=== PATIENT | female | born 1935 | race Caucasian/White ===

== ENCOUNTER 2018-09-14 17:01 | Observation (INO) | payer MEDICARE ==
[~2018-09-14] VITALS: Ht 172.7 cm; Wt 80.9 kg
[2018-09-14 18:03] LABS: BASOPHILS # (AUTO) 0.1 X10'3 (0-0.2); BASOPHILS % (AUTO) 1.5 % (0-1); EOSINOPHILS # (AUTO) 0.1 X10'3 (0-0.9); HEMATOCRIT 42.3 % (35.0-45.0); HEMOGLOBIN 14.2 g/dl (12.0-16.0); LYMPHOCYTES # (AUTO) 2.8 X10'3 (1.1-4.8); LYMPHOCYTES % (AUTO) 38.5 % (21-51); MEAN CORPUSCULAR HEMOGLOBIN 31.1 PG (27.0-31.0); MEAN CORPUSCULAR HGB CONC 33.6 g/dL (33.0-36.5); MEAN CORPUSCULAR VOLUME 92.5 FL (78-98); MONOCYTES # (AUTO) 0.4 X10'3 (0-0.9); MONOCYTES % (AUTO) 5.5 % (2-12); NEUTROPHILS # (AUTO) 3.9 X10'3 (1.8-7.7); NEUTROPHILS % (AUTO) 53.5 % (42-75); PLATELET COUNT 356 X10'3 (140-440); RED BLOOD COUNT 4.57 X10'6 (4.20-5.60); WHITE BLOOD COUNT 7.2 X10'3 (4.5-11.0)
[2018-09-14] MEDS ORDERED: aspirin 325mg tablet PO ONE (18:05)
[2018-09-14 18:13] LABS: PARTIAL THROMBOPLASTIN TIME 31 SECONDS (22-32)
[2018-09-14 18:24] LABS: ALANINE AMINOTRANSFERASE 33 U/L (12-78); ALBUMIN 3.5 G/DL (3.4-5.0); ALKALINE PHOSPHATASE 64 IU/L (46-116); ANION GAP 6 (8-16); ASPARTATE AMINO TRANSFERASE 18 U/L (10-37); BILIRUBIN,TOTAL 0.4 MG/DL (0.1-1.0); BLOOD UREA NITROGEN 10 MG/DL (7-18); BUN/CREATININE RATIO 13.3 (6.6-38.0); CHLORIDE 105 MMOL/L (99-107); CREATININE 0.75 MG/DL (0.40-0.90); GLUCOSE 106 MG/DL (70-104); SODIUM 138 MMOL/L (135-145); TOTAL CARBON DIOXIDE 26.9 MMOL/L (24-32); TROPONIN I < 0.04 NG/ML (0.0-0.05); eGFR 74 ML/MIN
[2018-09-14 18:45] LABS: CLARITY,URINE CLEAR (Clear); COLOR,URINE YELLOW (Yellow); GLUCOSE, URINE NEGATIVE (Neg); KETONES,URINE NEGATIVE (Neg); LEUKOCYTE ESTERASE ,URINE NEGATIVE (Neg); NITRITES, URINE NEGATIVE (Neg); OCCULT BLOOD,URINE NEGATIVE (Neg); PH,URINE 5.5 (4.8-8.0); PROTEIN,URINE NEGATIVE (Neg); UROBILINOGEN,URINE 0.2 E.U/dL (0.2-1.0)
[2018-09-14 18:51] LABS: UA COLLECTION TYPE CLN CATCH MIDSTREAM
[2018-09-14] MEDS ORDERED: NITR50CA PO (19:07)
[2018-09-14] MEDS ORDERED: APIX5TAB5 PO (19:09)
[2018-09-14] MEDS ORDERED: CHOL400T PO (19:10)
[2018-09-14] MEDS ORDERED: LACT1CAP65 PO (19:14)
[2018-09-14] MEDS ORDERED: CALC-499 PO (19:14)
[2018-09-14] MEDS ORDERED: TEMA15CA5 PO (19:16)
[2018-09-14] MEDS ORDERED: magnesium hydroxide 30ml (MOM) UD suspension PO PRN (19:20)
[2018-09-14] MEDS ORDERED: acetaminophen 325mg tablet PO PRN ×2 (19:20)
[2018-09-14] MEDS ORDERED: morphine 2 MG/ML inj. syringe IV PRN ×2 (19:20)
[2018-09-14] MEDS ORDERED: ondansetron/PF 4mg/2ml inj IV PRN (19:20)
[2018-09-14] MEDS ORDERED: HYDROcodone/acetaminophen 5mg/325mg tablet PO PRN (19:20)
[2018-09-14] MEDS ORDERED: temazepam 15mg capsule PO PRN (19:20)
[2018-09-14] MEDS ORDERED: mag hydrox/Alum hydrox/simeth 30ml oral suspension PO PRN (19:20)
[2018-09-14] MEDS ORDERED: TEMAZEPAM 7.5 MG PO PRN (19:30)
--- NOTE | 2018-09-14 19:42 | NUR ---
Received report from Pa FORDE in ER. Reveiwed POC with all questions and concerns addressed at this time. Room is ready for patient.
[2018-09-14 19:52] VITALS: BP 135/80
[2018-09-14] MEDS ORDERED: APIXABAN 5 MG PO SCH (20:00)
[2018-09-14] MEDS: normal saline 1000ml 1,000 ML IV SCH (20:14)
[2018-09-14] MEDS: apixaban 5mg tablet PO SCH (20:14)
[2018-09-14] MEDS ORDERED: nitrofurantoin macrocrystal 50mg capsule PO SCH (21:00)
[2018-09-14 22:00] VITALS: BP 114/59
[2018-09-15 02:00] VITALS: BP 129/50
[2018-09-15 06:00] VITALS: BP 124/45
[2018-09-15 06:04] LABS: BASOPHILS % (AUTO) 0.7 % (0-1); EOSINOPHILS # (AUTO) 0.1 X10'3 (0-0.9); EOSINOPHILS % (AUTO) 1.8 % (0-6); HEMATOCRIT 40.5 % (35.0-45.0); HEMOGLOBIN 13.6 g/dl (12.0-16.0); LYMPHOCYTES # (AUTO) 2.3 X10'3 (1.1-4.8); MEAN CORPUSCULAR HEMOGLOBIN 30.9 PG (27.0-31.0); MEAN CORPUSCULAR HGB CONC 33.6 g/dL (33.0-36.5); MEAN CORPUSCULAR VOLUME 91.8 FL (78-98); MEAN PLATELET VOLUME 6.8 FL (7.4-10.4); MONOCYTES # (AUTO) 0.3 X10'3 (0-0.9); MONOCYTES % (AUTO) 6.4 % (2-12); NEUTROPHILS # (AUTO) 2.5 X10'3 (1.8-7.7); NEUTROPHILS % (AUTO) 48.1 % (42-75); PLATELET COUNT 333 X10'3 (140-440); RED BLOOD COUNT 4.41 X10'6 (4.20-5.60); RED CELL DISTRIBUTION WIDTH 13.8 % (11.5-14.5); WHITE BLOOD COUNT 5.3 X10'3 (4.5-11.0)
--- NOTE | 2018-09-15 06:18 | NUR ---
Report given to Tracee FORDE.
--- NOTE | 2018-09-15 06:30 | NUR ---
received report from raiza uriarte
[2018-09-15 06:44] LABS: ALBUMIN 3.1 G/DL (3.4-5.0); ANION GAP 5 (8-16); BLOOD UREA NITROGEN 12 MG/DL (7-18); BUN/CREATININE RATIO 17.4 (6.6-38.0); CALCIUM 8.4 MG/DL (8.5-10.1); CHLORIDE 109 MMOL/L (99-107); CHOL/HDL RATIO 4.7 (0.00-4.99); CHOLESTEROL 166 MG/DL (0-200); CREATININE 0.69 MG/DL (0.40-0.90); GLUCOSE 97 MG/DL (70-104); HDL CHOLESTEROL 35 MG/DL (35-60); LDL CHOLESTEROL 99 MG/DL (50-100); POTASSIUM 4.2 MMOL/L (3.5-5.1); SODIUM 141 MMOL/L (135-145); TOTAL CARBON DIOXIDE 26.8 MMOL/L (24-32); TRIGLYCERIDES 125 MG/DL (20-135); eGFR 82 ML/MIN
[2018-09-15] MEDS: apixaban 5mg tablet PO SCH (07:57)
[2018-09-15] MEDS ORDERED: lactobacillus rhamnosus 10,000 MMU CELLS/CAPSULE PO SCH (08:00)
[2018-09-15] MEDS ORDERED: cholecalciferol (vitamin D) 400 unit tablet PO SCH (08:00)
[2018-09-15] MEDS ORDERED: non-formulary drug (Lactobacillus Acidophilus (Probiotic) 1 EACH) PO SCH (08:00)
[2018-09-15] MEDS ORDERED: aspirin 81mg tablet.DR PO SCH (08:00)
[2018-09-15 09:52] VITALS: BP 144/51
[2018-09-15] MEDS ORDERED: ASPI-1071 PO (12:12)
[2018-09-15] MEDS ORDERED: LISI-604 PO (12:12)
[2018-09-15] MEDS: normal saline 1000ml 1,000 ML IV SCH (12:20)
--- NOTE | 2018-09-15 13:00 | NUR ---
PT D/C WITH INSTRUCTIONS, UNDERSTANDING OF INSTRUCTIONS AND W/ALL BELONGINGS IN WHEELCHAIR ACCOMPANIED BY DAUGHTER TO PRIVATE VEHICLE TO GO HOME AND F/U W/PCP
== END 2018-09-15 12:55 | disposition home or self-care (01) ==
LOC: ER 17:02 → ORTHO 4S 19:34
PROVIDERS: ADMIT Internal Medicine; ATTEND Family Medicine
DX: R20.0 Anesthesia of skin (principal); R51 Headache; I48.0 Paroxysmal atrial fibrillation; I10 Essential (primary) hypertension; Q21.0 Ventricular septal defect; F43.9 Reaction to severe stress, unspecified; F32.9 Major depressive disorder, single episode, unspecified; Z90.710 Acquired absence of both cervix and uterus; Z90.89 Acquired absence of other organs; Z98.890 Other specified postprocedural states; Z88.2 Allergy status to sulfonamides; Z88.8 Allergy status to other drugs, medicaments and biological substances; Z79.01 Long term (current) use of anticoagulants; Z79.82 Long term (current) use of aspirin; Z90.711 Acquired absence of uterus with remaining cervical stump
CPT/HCPCS: 36415; 70450; 70544; 70551; 71045; 80048; 80053; 80061; 81003; 82948; 83036; 84484; 85025; 85610; 85651; 85730; 87081; 92508; 92616; 93005; 93306; 93880; 97162; 97530; 99284; G0378; J7030

== ENCOUNTER 2020-11-26 11:13 | Emergency (ER) | payer MEDICARE ==
[~2020-11-26] VITALS: Ht 170.2 cm; Wt 72.3 kg
[~2020-11-26 11:13] MED LIST: APIX5TAB5 PO; ASPI-1071 PO; CALC-499 PO; CHOL400T PO; LACT1CAP65 PO; LISI-790 PO; NITR50CA PO; TEMA15CA5 PO
[2020-11-26 11:18] VITALS: BP 111/50
== END 2020-11-26 14:21 | disposition home or self-care (01) ==
LOC: ER 11:14
DX: S52.502A Unspecified fracture of the lower end of left radius, initial encounter for closed fracture (principal); I48.91 Unspecified atrial fibrillation; Z88.2 Allergy status to sulfonamides; Z91.041 Radiographic dye allergy status; Z91.048 Other nonmedicinal substance allergy status; Z79.899 Other long term (current) drug therapy; W01.0XXA Fall on same level from slipping, tripping and stumbling without subsequent striking against object, initial encounter; Y93.H2 Activity, gardening and landscaping; Y92.89 Other specified places as the place of occurrence of the external cause; Y99.8 Other external cause status
CPT/HCPCS: 29125; 73090; 73110; 99284

== ENCOUNTER 2021-11-28 12:32 | Day surgery (SDC) | payer MEDICARE ==
[2021-11-23 11:28] LABS: APTT 31 SECONDS (22-32)
[2021-11-23 11:32] LABS: BASOPHILS # (AUTO) 0.1 X10'3 (0-0.2); BASOPHILS % (AUTO) 1.2 % (0-1); EOSINOPHILS % (AUTO) 0.7 % (0-6); HEMATOCRIT 40.3 % (35.0-45.0); HEMOGLOBIN 13.5 g/dl (12.0-16.0); LYMPHOCYTES # (AUTO) 1.8 X10'3 (1.1-4.8); LYMPHOCYTES % (AUTO) 30.2 % (21-51); MEAN CORPUSCULAR HEMOGLOBIN 30.5 PG (27.0-31.0); MEAN CORPUSCULAR HGB CONC 33.5 g/dL (33.0-36.5); MEAN CORPUSCULAR VOLUME 91.1 FL (78-98); MEAN PLATELET VOLUME 6.8 FL (7.4-10.4); MONOCYTES # (AUTO) 0.4 X10'3 (0-0.9); MONOCYTES % (AUTO) 5.9 % (2-12); NEUTROPHILS # (AUTO) 3.8 X10'3 (1.8-7.7); PLATELET COUNT 326 X10'3 (140-440); RED BLOOD COUNT 4.43 X10'6 (4.20-5.60); RED CELL DISTRIBUTION WIDTH 14.1 % (11.5-14.5); WHITE BLOOD COUNT 6.1 X10'3 (4.5-11.0)
[2021-11-23 11:33] LABS: ALBUMIN 3.6 G/DL (3.4-5.0); ANION GAP 4 (8-16); BLOOD UREA NITROGEN 10 MG/DL (7-18); BUN/CREATININE RATIO 14.5 (6.6-38.0); CALCIUM 8.9 MG/DL (8.5-10.1); CHLORIDE 101 MMOL/L (99-107); CHOL/HDL RATIO 3.8 (0.00-4.99); CHOLESTEROL 184 MG/DL (0-200); CREATININE 0.69 MG/DL (0.40-0.90); GLUCOSE 105 MG/DL (70-104); HDL CHOLESTEROL 49 MG/DL (35-60); LDL CHOLESTEROL 102 MG/DL (50-100); POTASSIUM 4.2 MMOL/L (3.5-5.1); SODIUM 136 MMOL/L (135-145); TOTAL CARBON DIOXIDE 30.7 MMOL/L (24-32); TRIGLYCERIDES 100 MG/DL (20-135); eGFR 81 ML/MIN
[~2021-11-28] VITALS: Ht 170.2 cm; Wt 74.3 kg
[2021-11-28] VITALS (7 sets, daily range): BP systolic 107–134; BP diastolic 35–68
[~2021-11-28 12:32] MED LIST changes: -LISI-790 PO; +LISI5TAB22 PO
[2021-11-28] MEDS ORDERED: normal saline 1,000 ML IV SCH (12:50)
[2021-11-28] MEDS ORDERED: diphenhydrAMINE 25mg capsule PO PRN (12:50)
[2021-11-28] MEDS ORDERED: LORazepam 0.5 MG tablet PO PRN (12:50)
[2021-11-28] MEDS ORDERED: fentaNYL/PF 50MCG/1 ML 2ML syringe ONE (14:49)
[2021-11-28] MEDS ORDERED: nitroGLYCERIN-Tridil 50MG/D5W 250 ML IV ONE (14:49)
[2021-11-28] MEDS ORDERED: heparin 1,000unit/ml 10ml vial 10 ML ONE (14:49)
[2021-11-28] MEDS ORDERED: iohexol 350MG/ML 100ml bottle IV ONE (14:49)
[2021-11-28] MEDS ORDERED: LIDOcaine 1% (10mg/ml) 2ml vial ONE (14:49)
[2021-11-28] MEDS ORDERED: midazolam 1 mg/ML 2ml injection ONE (14:49)
[2021-11-28] MEDS ORDERED: verapamil 2.5 mg/ml inj IV ONE (14:49)
[2021-11-28] MEDS ORDERED: HYDROcodone/acetaminophen 10/325mg tab PO PRN (16:10)
[2021-11-28] MEDS ORDERED: HYDROcodone/acetaminophen 5mg/325mg tablet PO PRN (16:10)
== END 2021-11-28 18:20 | disposition home or self-care (01) ==
LOC: SSTAY O 12:32
PROVIDERS: ATTEND Student in an Organized Health Care Education/Training Program
DX: R07.9 Chest pain, unspecified (principal); I48.0 Paroxysmal atrial fibrillation; G47.33 Obstructive sleep apnea (adult) (pediatric); Z91.041 Radiographic dye allergy status; Z88.8 Allergy status to other drugs, medicaments and biological substances; Z88.2 Allergy status to sulfonamides; Z79.899 Other long term (current) drug therapy; Z98.890 Other specified postprocedural states; I10 Essential (primary) hypertension; E78.00 Pure hypercholesterolemia, unspecified
CPT/HCPCS: 36415; 80048; 80061; 85025; 85610; 85730; 93458; 99152; A6258; C1769; C1894; J1644; J2250; J3010; J3490; J7030; Q9967; A4620; A5120; A6402

== ENCOUNTER 2022-05-29 09:03 | Emergency (ER) | payer MEDICARE ==
[~2022-05-29] VITALS: Ht 170.2 cm; Wt 78.2 kg
[~2022-05-29 09:03] MED LIST changes: -ASPI-1071 PO; -CALC-499 PO; -CHOL400T PO; -LACT1CAP65 PO; -LISI5TAB22 PO; -NITR50CA PO
--- NOTE | 2022-05-29 09:05 | NUR ---
ARRIVED BY EMS - SEEN BY PROVIDER UJN FOR MSE BEFORE GOING TO TRIAGE
[2022-05-29 09:59] VITALS: BP 148/72
[2022-05-29] MEDS ORDERED: LIDO1ADH78 TD (12:13)
== END 2022-05-29 12:21 | disposition home or self-care (01) ==
LOC: ER 09:03
DX: S09.90XA Unspecified injury of head, initial encounter (principal); S19.9XXA Unspecified injury of neck, initial encounter; Z88.2 Allergy status to sulfonamides; V89.2XXA Person injured in unspecified motor-vehicle accident, traffic, initial encounter; Y93.89 Activity, other specified; Y92.89 Other specified places as the place of occurrence of the external cause; Y99.8 Other external cause status
CPT/HCPCS: 70450; 72125; 99284